=== PATIENT | male | born 1935 | race Caucasian/White ===

== ENCOUNTER 2021-07-06 09:35 | Inpatient (IN) | payer MEDICARE, BC ==
[~2021-07-06] VITALS: Ht 177.8 cm; Wt 74.8 kg
[~2021-07-06 09:35] MED LIST: ACET325T9 PO; CHOL200044 PO; DOCU-109 PO; FLUT16SP NS; FOLI1TAB16 PO; FURO80TA3 PO; GABA300C18 PO; GABA600T14 PO; OMEG300C PO; POTA99TA PO; QUIN10TA15 PO; SENN1TAB70 PO; VIT1CAPS12 PO
--- NOTE | 2021-07-06 10:14 | EKG ---
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
[2021-07-06 10:24] LABS: BASO # 0.1 x10^3/uL (0.0-0.2); BASO % 1 % (0-3); EOS # 0.1 x10^3/uL (0.0-0.7); EOS % 2 % (0-3); HEMATOCRIT 39.8 % (39.0-53.0); HEMOGLOBIN 13.4 g/dL (13.0-17.5); LYMPH # 0.6 x10^3/uL (1.0-4.8); LYMPH % 11 % (24-48); MEAN CORPUSCULAR HEMOGLOBIN 30 pg (25-35); MEAN CORPUSCULAR HGB CONC 34 g/dL (31-37); MEAN CORPUSCULAR VOLUME 88 fL (79-100); MONO # 0.6 x10^3/uL (0.0-1.1); MONO % 11 % (0-9); NEUT # 4.2 x10^3/uL (1.8-7.7); NEUT % 75 % (31-73); PLATELET COUNT 314 x10^3/uL (140-400); RED BLOOD COUNT 4.54 x10^6/uL (4.30-5.70); RED CELL DISTRIBUTION WIDTH 14.1 % (11.5-14.5); WHITE BLOOD COUNT 5.7 x10^3/uL (4.0-11.0)
--- NOTE | 2021-07-06 10:41 | RAD ---
CT HEAD/BRAIN WO Date: 07/06/2021 10:14 AM Clinical Indication: AMS Comparison: None. Technique: 5 mm axial tomographic images were obtained of the head without contrast. These were view ed on brain and bone windows. One or more of the following dose reduction techniques were utilized: A utomated exposure control (AEC), Adjustment of mA and/or kV according to patient size, Use of iterati ve reconstruction technique such as ASiR, CT scan done according to ALARA and image gently/image redding ly Findings: Mild generalized cerebral and cerebellar volume loss. Mild nonspecific periventricular hypoattenuatio n, most commonly seen with chronic small vessel ischemic disease. Calcified atherosclerosis of the bi lateral cavernous and paraclinoid internal carotid arteries. No intra- or extra-axial mass or fluid collection. No acute hemorrhage. Dilation of the lateral and t hird ventricles, out of proportion to the degree of cerebral volume loss. The barrientos-white matter junct ion is normal. The subarachnoid cisterns are patent. The visualized paranasal sinuses are normal. The visualized portions of the orbits and globes are no rmal. The mastoid air cells are clear. The sign out clerk topogram shows no lytic lesion or fracture. Impression: 1. No acute hemorrhage or loss of barrientos-white differentiation. 2. Dilation of the lateral and third ventricles, out of proportion to the degree of cerebral volume l oss. While this could relate to advanced central atrophy, normal pressure hydrocephalus could have a similar appearance and clinical correlation is advised. 3. Mild cerebral volume loss. Mild chronic small vessel ischemic disease. Electronically signed by: Rolly Gregorio MD (07/06/2021 10:39 AM) [id number]
--- NOTE | 2021-07-06 10:45 | RAD ---
EXAM: XR CHEST 1V 07/06/2021 10:34 AM CLINICAL INDICATION: Altered mental status COMPARISON: Chest radiograph 06/27/2021 TECHNIQUE: AP views of the chest FINDINGS: The heart is normal in size. There is marked elevation of the right hemidiaphragm with gas -filled colon beneath the diaphragm. The lungs are clear. No pleural effusion. There is a possible pl eural edge seen at the right apex versus more likely artifact. IMPRESSION: 1. Possible pleural edge versus more likely artifact at the right apex. A tiny right apical pneumotho rax is not entirely excluded. Recommend attention on follow-up. 2. Unchanged elevation of the right hemidiaphragm. Electronically signed by: Qing Gonzales MD (07/06/2021 10:43 AM) [id number]
[2021-07-06 11:15] LABS: CALCIUM 9.2 mg/dL (8.5-10.1); CREATININE 0.8 mg/dL (0.7-1.3); GFR 91.7; POTASSIUM 4.1 mmol/L (3.5-5.1)
[2021-07-06 11:17] LABS: CLARITY,URINE TURBID; COLOR,URINE BROWN; PH,URINE 5.5
[2021-07-06 11:18] LABS: RBC,URINE TNTC /HPF (0-2)
[2021-07-06 11:20] LABS: ALBUMIN 3.1 g/dL (3.4-5.0); ALBUMIN/GLOBULIN RATIO 0.8 (1.0-1.7); TOTAL BILIRUBIN 0.4 mg/dL (0.2-1.0); TOTAL PROTEIN 6.9 g/dL (6.4-8.2); WBC,URINE FIELD OBSCURED /HPF (0-4)
[2021-07-06 11:21] LABS: BACTERIA,URINE FIELD OBSCURED /HPF (0-FEW)
[2021-07-06 14:32] LABS: BILIRUBIN,URINE NEGATIVE (NEG); CLARITY,URINE CLOUDY; COLOR,URINE YELLOW; NITRITE,URINE NEGATIVE (NEG); PROTEIN,URINE 30 mg/dL (NEG-TRACE)
[2021-07-06 14:35] LABS: BACTERIA,URINE 0 /HPF (0-FEW)
[2021-07-06 14:37] LABS: RBC,URINE >40 /HPF (0-2)
[2021-07-06] MEDS ORDERED: IV NORMAL SALINE 1000ML BAG 1,000 ML IV ONE (15:15)
[2021-07-06] MEDS ORDERED: cefTRIAXone IV Push 1 GM VIAL. IVP ONE (15:15)
[2021-07-06] MEDS ORDERED: CYCLOPENTOLATE 1% OPHTH SOLUTION 2ML BOTTLE. OU ONE (15:45)
[2021-07-06] MEDS ORDERED: ACETAMINOPHEN 325 MG TABLET. PO PRN (16:30)
--- NOTE | 2021-07-06 17:38 | PHYS DOC ---
Past Medical History Additional Past Medical Histor: colon Past Surgical History: Colectomy Smoking Status: Former Smoker Alcohol Use: Rarely General Adult EDM: Chief Complaint: ALTERED MENTAL STATUS HPI: HPI: 86-year-old male presents with confusion. States that he was walking around his home and ended up in rooms and he did not know how he got there. Per family members this is the fourth time in the past several weeks he is called an ambulance because of this confusion. Lives alone by himself and is normally al ert and oriented perfectly. Patient states that he currently does not feel confused however he claims to have difficulty remembering things. Per family numbers he has had this chronic indwelling Rm for quite some time and was recently diagnosed with a urinary tract infection. They are unsure if he remembered to take his antibiotics. No fever or chills. No vomiting or diarrhea. Patient denies any abdominal pain back pain or flank pain. Denies knowing about any significant hematuria. Review of Systems: Review of Systems: Constitutional: Positive for confusion Eyes: Denies change in visual acuity. [] HENT: Denies nasal congestion or sore throat. [] Respiratory: Denies cough or shortness of breath. [] Cardiovascular: Denies chest pain or edema. [] GI: Denies abdominal pain, nausea, vomiting, bloody stools or diarrhea. [] : Denies dysuria. [] Musculoskeletal: Denies back pain or joint pain. [] Integument: Denies rash. [] Neurologic: Denies headache, focal weakness or sensory changes. [] Endocrine: Denies polyuria or polydipsia. [] Lymphatic: Denies swollen glands. [] Psychiatric: Denies depression or anxiety. [] Heart Score: C/O Chest Pain: No Risk Factors: Risk Factors: DM, Current or recent (<one month) smoker, HTN, HLP, family history of CAD, obesity. Risk Scores: Score 0 - 3: 2.5% MACE over next 6 weeks - Discharge Home Score 4 - 6: 20.3% MACE over next 6 weeks - Admit for Clinical Observation Score 7 - 10: 72.7% MACE over next 6 weeks - Early Invasive Strategies Current Medications: Current Medications Medications (Trade) Dose Ordered Sig/Jyotsna Start Time Stop Time Status Last Admin Dose Admin Acetaminophen (Tylenol) 650 mg PRN Q6HRS PRN 07/06/21 16:30 Ceftriaxone Sodium (Rocephin) 1 gm Q24H 07/07/21 15:00 Cyclopentolate HCl (Cyclogyl 1%) 1 drop 1X ONCE 07/06/21 15:45 07/06/21 15:46 DC 07/06/21 17:25 1 DROP Docusate Sodium (Colace) 100 mg BID 07/06/21 21:00 Fish Oil (Fish Oil) 1,000 mg DAILY 07/07/21 09:00 Folic Acid (Folic Acid) 1 mg DAILY 07/07/21 09:00 Furosemide (Lasix) 80 mg DAILY 07/07/21 09:00 Gabapentin (Neurontin) 300 mg TID 07/06/21 21:00 Multivitamins/ Minerals (I-Madeleine) 1 tab DAILY 07/07/21 09:00 Non-Formulary Medication (Potassium Gluconate (Potassium)) 99 mg DAILY 07/07/21 09:00 UNV Senna/Docusate Sodium (Senna Plus) 1 tab DAILY 07/07/21 09:00 Sodium Chloride 1,000 ml @ 150 mls/hr 1X ONCE 07/06/21 15:15 07/06/21 21:54 07/06/21 17:25 150 MLS/HR Vitamin D (Vitamin D3) 1,000 unit DAILY 07/07/21 09:00 Allergies: Allergies: Allergies Coded Allergies Type Severity Reaction Last Updated Verified codeine Adverse Reaction Intermediate Anxiety 07/06/21 Yes Physical Exam: PE: Constitutional: Well developed, well nourished, no acute distress, non-toxic appearance. [] HENT: Normocephalic, atraumatic, bilateral external ears normal, oropharynx moist, no oral exudates, nose normal. [] Eyes: PERRLA, EOMI, conjunctiva normal, no discharge. [] Neck: Normal range of motion, no tenderness, supple, no stridor. [] Cardiovascular:Heart rate regular rhythm, no murmur [] Lungs & Thorax: Bilateral breath sounds clear to auscultation [] Abdomen: Bowel sounds normal, soft, no tenderness, no masses, no pulsatile masses. Colostomy bag in place, Rm catheter in place with bag revealing dark-colored urine that is maroon Skin: Warm, dry, no erythema, no rash. [] Back: No tenderness, no CVA tenderness. [] Extremities: No tenderness, no cyanosis, no clubbing, ROM intact, no edema. [] Neurologic: Alert and oriented X 3, normal motor function, normal sensory function, no focal deficits noted. [] Psychologic: Affect normal, judgement normal, mood normal. [] Current Patient Data: Labs: Laboratory Tests Test 07/06/21 09:40 07/06/21 10:50 07/06/21 11:30 White Blood Count 5.7 x10^3/uL (4.0-11.0) Red Blood Count 4.54 x10^6/uL (4.30-5.70) Hemoglobin 13.4 g/dL (13.0-17.5) Hematocrit 39.8 % (39.0-53.0) Mean Corpuscular Volume 88 fL (79-100) Mean Corpuscular Hemoglobin 30 pg (25-35) Mean Corpuscular Hemoglobin Concent 34 g/dL (31-37) Red Cell Distribution Width 14.1 % (11.5-14.5) Platelet Count 314 x10^3/uL (140-400) Neutrophils (%) (Auto) 75 % (31-73) H Lymphocytes (%) (Auto) 11 % (24-48) L Monocytes (%) (Auto) 11 % (0-9) H Eosinophils (%) (Auto) 2 % (0-3) Basophils (%) (Auto) 1 % (0-3) Neutrophils # (Auto) 4.2 x10^3/uL (1.8-7.7) Lymphocytes # (Auto) 0.6 x10^3/uL (1.0-4.8) L Monocytes # (Auto) 0.6 x10^3/uL (0.0-1.1) Eosinophils # (Auto) 0.1 x10^3/uL (0.0-0.7) Basophils # (Auto) 0.1 x10^3/uL (0.0-0.2) Erythrocyte Sedimentation Rate 51 (0-15) H Urine Collection Type U cath U cath Urine Color Brown Yellow Urine Clarity Turbid Cloudy Urine pH 5.5 7.0 Urine Specific [place] 1.025 1.020 Urine Protein mg/dL (NEG-TRACE) 30 mg/dL (NEG-TRACE) Urine Glucose (UA) mg/dL (NEG) Negative mg/dL (NEG) Urine Ketones (Stick) mg/dL (NEG) 40 mg/dL (NEG) Urine Blood (NEG) Large (NEG) Urine Nitrite (NEG) Negative (NEG) Urine Bilirubin (NEG) Negative (NEG) Urine Urobilinogen Dipstick mg/dL (0.2 mg/dL) 1.0 mg/dL (0.2 mg/dL) Urine Leukocyte Esterase (NEG) Moderate (NEG) Urine RBC Tntc /HPF (0-2) >40 /HPF (0-2) Urine WBC Field obscured /HPF (0-4) 5-10 /HPF (0-4) Urine Bacteria Field obscured /HPF (0-FEW) 0 /HPF (0-FEW) Sodium Level 148 mmol/L (136-145) H Potassium Level 4.1 mmol/L (3.5-5.1) Chloride Level 111 mmol/L (98-107) H Carbon Dioxide Level 27 mmol/L (21-32) Anion Gap 10 (6-14) Blood Urea Nitrogen 18 mg/dL (8-26) Creatinine 0.8 mg/dL (0.7-1.3) Estimated GFR (Cockcroft-Gault) 91.7 BUN/Creatinine Ratio 23 (6-20) H Glucose Level 96 mg/dL (70-99) Calcium Level 9.2 mg/dL (8.5-10.1) Total Bilirubin 0.4 mg/dL (0.2-1.0) Aspartate Amino Transferase (AST) 42 U/L (15-37) H Alanine Aminotransferase (ALT) 74 U/L (16-63) H Alkaline Phosphatase 70 U/L (46-116) Total Protein 6.9 g/dL (6.4-8.2) Albumin 3.1 g/dL (3.4-5.0) L Albumin/Globulin Ratio 0.8 (1.0-1.7) L Lipase 183 U/L (73-393) Vitamin B12 Level 1347 pg/mL (247-911) H Thyroid Stimulating Hormone (TSH) 1.743 uIU/mL (0.358-3.74) Laboratory Tests 07/06/21 09:40 Laboratory Tests 07/06/21 10:50 Vital Signs: Vital Signs Date Time Temp Pulse Resp B/P (MAP) Pulse Ox O2 Delivery O2 Flow Rate FiO2 07/06/21 15:24 74 20 168/74 (105) 96 Room Air 07/06/21 10:06 98.4 98.4 EKG: EKG: [] Radiology/Procedures: Radiology/Procedures: [] Course & Med Decision Making: Course & Med Decision Making Pertinent Labs and Imaging studies reviewed. (See chart for details) Patient will be admitted with IV antibiotics and fluids. It is possible that he is confused because of possible confusion at home. There this has caused him to be noncompliant with his antibiotics. Additionally the CT scan was read by the radiologist as having large ventricles. I spoke with neurology on-call who states that this appeared to them to be correlated with age-related atrophy. I performed a dilated eye exam which did not show any papilledema. The optic discs were sharp in both eyes. Dragon Disclaimer: Dragon Disclaimer: This electronic medical record was generated, in whole or in part, using a voice recognition dictation system. Departure Departure Impression: Primary Impression: Urinary tract infection Additional Impression: Altered mental status Disposition: ADMITTED INPATIENT Condition: STABLE Referrals: JESSIE ROBERTSON MD (PCP) CHARLA FELICIANO MD July 06, 2021 17:38
--- NOTE | 2021-07-06 18:37 | HP ---
DATE OF SERVICE: 07/06/2021 ADMIT DATE: 07/06/2021 CHIEF COMPLAINT: Weakness and mental status change. HISTORY OF PRESENT ILLNESS: The patient is a pleasant elderly male who has been developing weakness and mental status change intermittently. He stated when he went upstairs today, he did not remember why went up there. While in the ER, we noticed that he has got abnormal urine with a moderate amount of leukocyte esterase and 10 white cells. I suspect he has a UTI. We are going to admit the patient, give him IV fluids and IV antibiotics. PAST MEDICAL HISTORY: Neuropathy, hypokalemia, hypertension, edema, allergic rhinitis, constipation. ALLERGIES: CODEINE. FAMILY HISTORY: Diabetes. SOCIAL HISTORY: Lives alone. Does not drink, smoke or take drugs. He has been for the past 6 years. MEDICATIONS: Reviewed. He is on 12. Please refer to the MRAD. REVIEW OF SYSTEMS: GENERAL: No history of weight change, weakness or fevers. SKIN: No bruising, hair changes or rashes. EYES: No blurred, double or loss of vision. NOSE AND THROAT: No history of nosebleeds, hoarseness or sore throat. HEART: No history of palpitations, chest pain or shortness of breath on exertion. LUNGS: Denies cough, hemoptysis, wheezing or shortness of breath. GASTROINTESTINAL: Denies changes in appetite, nausea, vomiting, diarrhea or constipation. GENITOURINARY: No history of frequency, urgency, hesitancy or nocturia. NEUROLOGIC: He complains of weakness and intermittent confusion. PSYCHIATRIC: No history of panic, anxiety or depression. ENDOCRINE: No history of heat or cold intolerance, polyuria or polydipsia. EXTREMITIES: Denies muscle weakness, joint pain, pain on walking or stiffness. PHYSICAL EXAMINATION: VITALS: Within normal limits and are stable. GENERAL: No apparent distress. Alert and oriented. HEENT: Normal cephalic atraumatic, external auditory canals are patent EYES: Extraocular muscles are intact, pupils are equally round and reactive to light and accommodation MUSCULOSKELETAL: Well developed, well nourished, good range of motion ENDOCRINE: No thyromegaly was palpated LYMPHATICS: No cervical chain or axillary nodes were noted HEMATOPOIETIC: No bruising NECK: Supple, no JVD, no thyromegaly was noted. LUNGS: Clear to auscultation in all lung pickard without rhonchi or wheezing. HEART: RRR, S1, S2 present. Peripheral pulses intact, no obvious murmurs were noted. ABDOMEN: Soft, nontender. Positive bowel sounds no organomegaly, normal bowel sounds. EXTREMITIES: Without any cyanosis, clubbing, or edema. Pedal pulses intact, Homans sign is negative. NEUROLOGIC: He is very weak. PSYCHIATRIC: Normal affect, normal mood. Stable. SKIN: No ulcerations or rashes, good skin turgor, no jaundice. VASCULAR: Good capillary refill, neurovascular bundle appears to be intact. LABORATORY DATA: Sodium is 148. Urinalysis shows a moderate amount of leukocyte esterase and 10 white cells. ASSESSMENT AND PLAN: Urinary tract infection with metabolic encephalopathy. The patient has been admitted. We will start IV antibiotics, IV fluids, home meds. Deep venous thrombosis prophylaxis. Full code. Physical therapy, occupational therapy, senior living unit evaluation. ANNI/YAZMIN DR: Rosemary TID: [id number]
[2021-07-06 19:00] VITALS: BP 141/58
[2021-07-06] MEDS: GABAPENTIN 300 MG CAPSULE. PO SCH (21:37)
[2021-07-06] MEDS: DOCUSATE SODIUM 100 MG CAPSULE. PO SCH (21:41)
[2021-07-07 03:00] VITALS: BP 130/59
[2021-07-07] MEDS ORDERED: FURO40TA4 PO (06:30)
[2021-07-07] MEDS ORDERED: OXYB10TA26 PO (06:30)
[2021-07-07] MEDS ORDERED: GABA300C9 PO (06:30)
[2021-07-07] MEDS ORDERED: FINA5TAB4 PO (06:30)
[2021-07-07] MEDS ORDERED: TAMS0.4C97 PO (06:30)
[2021-07-07 07:00] VITALS: BP 144/61
[2021-07-07] MEDS ORDERED: POTASSIUM GLUCONATE 99 MG PO SCH (09:00)
[2021-07-07] MEDS: SENNOSIDES/DOCUSATE 8.6/50MG TABLET. PO SCH (09:17)
[2021-07-07] MEDS: OMEGA-3 FATTY ACIDS/FISH OIL 1,000 MG CAPSULE. PO SCH (09:17)
[2021-07-07] MEDS: MULTIVITAMIN I-VITE TABLET. PO SCH (09:17)
[2021-07-07] MEDS: CHOLECALCIFEROL (VITAMIN D3) 1,000 UNIT TABLET PO SCH (09:17)
[2021-07-07] MEDS: DOCUSATE SODIUM 100 MG CAPSULE. PO SCH ×2 (09:18→20:44)
[2021-07-07] MEDS: FOLIC ACID 1 MG TABLET. PO SCH (09:18)
[2021-07-07] MEDS: GABAPENTIN 300 MG CAPSULE. PO SCH ×3 (09:18→20:44)
[2021-07-07] MEDS: FUROSEMIDE 80 MG TABLET. PO SCH (09:20)
[2021-07-07 11:00] VITALS: BP 109/55
[2021-07-07] MEDS: cefTRIAXone IV Push 1 GM VIAL. IVP SCH (14:27)
[2021-07-07 15:00] VITALS: BP 111/54
--- NOTE | 2021-07-07 16:17 | NUR ---
SS following for discharge planning. SS reviewed pt chart and discussed with pt RN. Pt is from home alone and is currently on room air. Pt on IV Rocephin and IV fluids. PT/OT ordered. SS will continue to follow for discharge planning.
[2021-07-07 19:00] VITALS: BP 139/57
[2021-07-07] MEDS: LACTOBACILLUS RHAMNOSUS GG 1 CAPSULE. PO SCH (20:44)
[2021-07-07 22:44] VITALS: BP 110/50
[2021-07-08 03:37] VITALS: BP 134/61
[2021-07-08 07:00] VITALS: BP 109/89
[2021-07-08] MEDS: OMEGA-3 FATTY ACIDS/FISH OIL 1,000 MG CAPSULE. PO SCH (08:43)
[2021-07-08] MEDS: CHOLECALCIFEROL (VITAMIN D3) 1,000 UNIT TABLET PO SCH (08:43)
[2021-07-08] MEDS: SENNOSIDES/DOCUSATE 8.6/50MG TABLET. PO SCH (08:43)
[2021-07-08] MEDS: MULTIVITAMIN I-VITE TABLET. PO SCH (08:43)
[2021-07-08] MEDS: LACTOBACILLUS RHAMNOSUS GG 1 CAPSULE. PO SCH ×2 (08:44→20:27)
[2021-07-08] MEDS: GABAPENTIN 300 MG CAPSULE. PO SCH ×3 (08:44→20:27)
[2021-07-08] MEDS: DOCUSATE SODIUM 100 MG CAPSULE. PO SCH ×2 (08:44→20:27)
[2021-07-08] MEDS: FOLIC ACID 1 MG TABLET. PO SCH (08:44)
[2021-07-08] MEDS: FUROSEMIDE 80 MG TABLET. PO SCH (08:44)
[2021-07-08 11:00] VITALS: BP 101/65
[2021-07-08] MEDS: cefTRIAXone IV Push 1 GM VIAL. IVP SCH (14:36)
[2021-07-08 15:00] VITALS: BP 128/80
--- NOTE | 2021-07-08 17:14 | PDOC ---
[employer] PROGRESS NOTE Date of Service DOS: DATE: 07/08/21 TIME: 17:11 Chief Complaint Chief Complaint Urinary tract infection with metabolic encephalopathy. The patient has been admitted. We will start IV antibiotics, IV fluids, home meds. Follow up urine cultures from OSH --> grew Proteus but pretty pansensitive other than Macrobid. Continue current Rocephin. Deep venous thrombosis prophylaxis. Full code. Physical therapy, occupational therapy, detention unit evaluation. --> recommending detention placement History of Present Illness History of Present Illness 07/08 Patient evaluated examined at bedside. Resting in bed still a bit confused. No growth on urine cultures but patient had received antibiotics prior to urine being obtained and chronic Rm can definitely cloud the picture. Exchange Rm. Outside cultures reviewed Proteus sensitive to Rocephin we will continue this for now. PT OT recommending SNF placement. Discussed with bedside RN. Continue current. Vitals/I&O Vitals/I&O: Vital Signs Date Time Temp Pulse Resp B/P (MAP) Pulse Ox O2 Delivery O2 Flow Rate FiO2 07/08/21 15:00 97.9 90 20 128/80 (96) 94 Room Air 97.9 I & O 07/07/21 07/07/21 07/08/21 15:00 23:00 07:00 Intake Total 240 ml 240 ml 240 ml Output Total 400 ml 1050 ml Balance -160 ml -810 ml 240 ml Physical Exam General: Alert, Oriented X3, Cooperative Heart: Regular rate, Normal S1, Normal S2 Lungs: Clear Abdomen: Normal bowel sounds, Soft, No hepatosplenomegaly Extremities: No edema, Normal pulses Skin: No significant lesion Assessment and Plan Assessmemt and Plan Problems Medical Problems: (1) Altered mental status Status: Acute (2) Urinary tract infection Status: Acute Comment Review of Relevant I have reviewed the following items lisa (where applicable) has been applied. Medications: Current Medications Medications (Trade) Dose Ordered Sig/Jyotsna Route PRN Reason Start Time Stop Time Status Last Admin Dose Admin Lactobacillus Rhamnosus (Culturelle) 1 cap BID PO 07/07/21 21:00 07/08/21 08:44 Justifications for Admission Other Justification ALLIE NAGEL MD July 08, 2021 17:14
[2021-07-08 19:43] VITALS: BP 110/52
[2021-07-08] MEDS: OXYBUTYNIN CHLORIDE 5 MG TABLET PO SCH (20:27)
[2021-07-08] MEDS ORDERED: GABAPENTIN 300 MG CAPSULE. PO SCH (21:00)
[2021-07-08 23:09] VITALS: BP 110/53
[2021-07-09 03:13] VITALS: BP 119/60
[2021-07-09 05:23] LABS: BASO # 0.1 x10^3/uL (0.0-0.2); BASO % 1 % (0-3); EOS # 0.4 x10^3/uL (0.0-0.7); EOS % 6 % (0-3); HEMATOCRIT 40.1 % (39.0-53.0); HEMOGLOBIN 13.5 g/dL (13.0-17.5); LYMPH # 1.2 x10^3/uL (1.0-4.8); LYMPH % 16 % (24-48); MEAN CORPUSCULAR HEMOGLOBIN 29 pg (25-35); MEAN CORPUSCULAR HGB CONC 34 g/dL (31-37); MEAN CORPUSCULAR VOLUME 87 fL (79-100); MONO % 13 % (0-9); NEUT # 4.8 x10^3/uL (1.8-7.7); NEUT % 64 % (31-73); PLATELET COUNT 262 x10^3/uL (140-400); RED BLOOD COUNT 4.61 x10^6/uL (4.30-5.70); RED CELL DISTRIBUTION WIDTH 14.1 % (11.5-14.5); WHITE BLOOD COUNT 7.5 x10^3/uL (4.0-11.0)
[2021-07-09 05:47] LABS: ALBUMIN 2.8 g/dL (3.4-5.0); ALBUMIN/GLOBULIN RATIO 0.8 (1.0-1.7); CALCIUM 8.7 mg/dL (8.5-10.1); CREATININE 0.8 mg/dL (0.7-1.3); GFR 91.7; POTASSIUM 3.2 mmol/L (3.5-5.1); TOTAL BILIRUBIN 0.4 mg/dL (0.2-1.0); TOTAL PROTEIN 6.2 g/dL (6.4-8.2)
[2021-07-09 07:00] VITALS: BP 128/60
[2021-07-09] MEDS: CHOLECALCIFEROL (VITAMIN D3) 1,000 UNIT TABLET PO SCH (08:35)
[2021-07-09] MEDS: DOCUSATE SODIUM 100 MG CAPSULE. PO SCH ×2 (08:36→20:42)
[2021-07-09] MEDS: OMEGA-3 FATTY ACIDS/FISH OIL 1,000 MG CAPSULE. PO SCH (08:36)
[2021-07-09] MEDS: FINASTERIDE 5 MG TABLET. PO SCH (08:36)
[2021-07-09] MEDS: SENNOSIDES/DOCUSATE 8.6/50MG TABLET. PO SCH (08:36)
[2021-07-09] MEDS: MULTIVITAMIN I-VITE TABLET. PO SCH (08:36)
[2021-07-09] MEDS: GABAPENTIN 300 MG CAPSULE. PO SCH ×3 (08:36→20:42)
[2021-07-09] MEDS: TAMSULOSIN 0.4 MG CAP.ER.24H. PO SCH (08:36)
[2021-07-09] MEDS: LACTOBACILLUS RHAMNOSUS GG 1 CAPSULE. PO SCH ×2 (08:36→20:42)
[2021-07-09] MEDS: FOLIC ACID 1 MG TABLET. PO SCH (08:36)
[2021-07-09] MEDS: FUROSEMIDE 80 MG TABLET. PO SCH (08:37)
[2021-07-09] MEDS: FLUTICASONE 50MCG/NASAL SPRAY 16GM BOTTLE. NS SCH (08:37)
[2021-07-09] MEDS: OXYBUTYNIN CHLORIDE 5 MG TABLET PO SCH ×2 (08:37→20:42)
[2021-07-09] MEDS ORDERED: POTASSIUM CHLORIDE 20 MEQ TABLET.ER. PO ONE (10:45)
--- NOTE | 2021-07-09 10:59 | PDOC ---
[employer] PROGRESS NOTE Date of Service DOS: DATE: 07/09/21 TIME: 10:57 Chief Complaint Chief Complaint Urinary tract infection with metabolic encephalopathy. The patient has been admitted. We will start IV antibiotics, IV fluids, home meds. Follow up urine cultures from OSH --> grew Proteus but pretty pansensitive other than Macrobid. Continue current Rocephin. Deep venous thrombosis prophylaxis. Full code. Physical therapy, occupational therapy, fdc unit evaluation. --> recommending fdc placement History of Present Illness History of Present Illness 07/09 Patient evaluated examined at bedside. Sitting up in chair resting. Easily awoken no complaints but does still look confused. Continue antibiotics. Replace potassium today. Will need SNF placement. 07/08 Patient evaluated examined at bedside. Resting in bed still a bit confused. No growth on urine cultures but patient had received antibiotics prior to urine being obtained and chronic Rm can definitely cloud the picture. Exchange Rm. Outside cultures reviewed Proteus sensitive to Rocephin we will continue this for now. PT OT recommending SNF placement. Discussed with bedside RN. Continue current. Vitals/I&O Vitals/I&O: Vital Signs Date Time Temp Pulse Resp B/P (MAP) Pulse Ox O2 Delivery O2 Flow Rate FiO2 07/09/21 07:00 98.1 71 20 128/60 (82) 95 Room Air 98.1 I & O 07/08/21 07/08/21 07/09/21 15:00 23:00 07:00 Intake Total 140 ml 100 ml Output Total 700 ml 600 ml 500 ml Balance -560 ml -600 ml -400 ml Physical Exam General: Alert, Cooperative, No acute distress Heart: Regular rate, Normal S1, Normal S2 Lungs: Clear Abdomen: Normal bowel sounds, Soft, No hepatosplenomegaly Extremities: No edema, Normal pulses Skin: No significant lesion Labs Labs: Laboratory Tests Test 07/09/21 04:45 White Blood Count 7.5 x10^3/uL (4.0-11.0) Red Blood Count 4.61 x10^6/uL (4.30-5.70) Hemoglobin 13.5 g/dL (13.0-17.5) Hematocrit 40.1 % (39.0-53.0) Mean Corpuscular Volume 87 fL (79-100) Mean Corpuscular Hemoglobin 29 pg (25-35) Mean Corpuscular Hemoglobin Concent 34 g/dL (31-37) Red Cell Distribution Width 14.1 % (11.5-14.5) Platelet Count 262 x10^3/uL (140-400) Neutrophils (%) (Auto) 64 % (31-73) Lymphocytes (%) (Auto) 16 % (24-48) Monocytes (%) (Auto) 13 % (0-9) Eosinophils (%) (Auto) 6 % (0-3) Basophils (%) (Auto) 1 % (0-3) Neutrophils # (Auto) 4.8 x10^3/uL (1.8-7.7) Lymphocytes # (Auto) 1.2 x10^3/uL (1.0-4.8) Monocytes # (Auto) 1.0 x10^3/uL (0.0-1.1) Eosinophils # (Auto) 0.4 x10^3/uL (0.0-0.7) Basophils # (Auto) 0.1 x10^3/uL (0.0-0.2) Sodium Level 138 mmol/L (136-145) Potassium Level 3.2 mmol/L (3.5-5.1) Chloride Level 104 mmol/L (98-107) Carbon Dioxide Level 25 mmol/L (21-32) Anion Gap 9 (6-14) Blood Urea Nitrogen 16 mg/dL (8-26) Creatinine 0.8 mg/dL (0.7-1.3) Estimated GFR (Cockcroft-Gault) 91.7 BUN/Creatinine Ratio 20 (6-20) Glucose Level 95 mg/dL (70-99) Calcium Level 8.7 mg/dL (8.5-10.1) Total Bilirubin 0.4 mg/dL (0.2-1.0) Aspartate Amino Transf (AST/SGOT) 19 U/L (15-37) Alanine Aminotransferase (ALT/SGPT) 35 U/L (16-63) Alkaline Phosphatase 54 U/L (46-116) Total Protein 6.2 g/dL (6.4-8.2) Albumin 2.8 g/dL (3.4-5.0) Albumin/Globulin Ratio 0.8 (1.0-1.7) Assessment and Plan Assessmemt and Plan Problems Medical Problems: (1) Altered mental status Status: Acute (2) Urinary tract infection Status: Acute Comment Review of Relevant I have reviewed the following items lisa (where applicable) has been applied. Medications: Current Medications Medications (Trade) Dose Ordered Sig/Jyotsna Route PRN Reason Start Time Stop Time Status Last Admin Dose Admin Finasteride (Proscar) 5 mg DAILY PO 07/09/21 09:00 07/09/21 08:36 Fluticasone Propionate (Flonase) 2 spray DAILY NS 07/09/21 09:00 07/09/21 08:37 Tamsulosin HCl (Flomax) 0.4 mg DAILY PO 07/09/21 09:00 07/09/21 08:36 Oxybutynin Chloride (Ditropan) 5 mg BID PO 07/08/21 21:00 07/09/21 08:37 Justifications for Admission Other Justification ALLIE NAGEL MD July 09, 2021 10:59
[2021-07-09 11:00] VITALS: BP 131/62
--- NOTE | 2021-07-09 12:30 | NUR ---
Family approached stating patient needed help. Assessed patient, was lethargic and fumbling with the lid to the meal tray, head down, eyes closed when this RN entered the room. Patient was cool and clammy. Vitals taken, patient was responsive, and answering questions appropriately, alertness improved in seconds. Within approximately 2mins, patient was warm and flushing. Blood sugar was checked and at 85, after patient had just finished his entire tray. Vitals were 97.8-oral, 72 HR 96%RA 91/45. Rm emptied. Patient was alert and appeared normal. Dr. He was informed. Orders received for ACHS, and hypoglycemia protocol initiated. Monitoring vitals and BS.
[2021-07-09] MEDS ORDERED: DEXTROSE 50% 25 GM / 50ML DISP.SYRIN. IV PRN (12:45)
[2021-07-09] MEDS: DICLOFENAC SODIUM 1% TOPICAL GEL 100GM TUBE. TP PRN ×2 (14:20→20:45)
[2021-07-09] MEDS: cefTRIAXone IV Push 1 GM VIAL. IVP SCH (14:21)
[2021-07-09 15:00] VITALS: BP 120/55
[2021-07-09 19:45] VITALS: BP 120/48
[2021-07-09 23:42] VITALS: BP 108/48
[2021-07-10 03:50] VITALS: BP 111/69
[2021-07-10 07:00] VITALS: BP 123/67
[2021-07-10] MEDS: FLUTICASONE 50MCG/NASAL SPRAY 16GM BOTTLE. NS SCH (08:07)
[2021-07-10] MEDS: LACTOBACILLUS RHAMNOSUS GG 1 CAPSULE. PO SCH ×2 (08:08→21:20)
[2021-07-10] MEDS: SENNOSIDES/DOCUSATE 8.6/50MG TABLET. PO SCH (08:08)
[2021-07-10] MEDS: CHOLECALCIFEROL (VITAMIN D3) 1,000 UNIT TABLET PO SCH (08:08)
[2021-07-10] MEDS: DOCUSATE SODIUM 100 MG CAPSULE. PO SCH ×2 (08:08→21:21)
[2021-07-10] MEDS: TAMSULOSIN 0.4 MG CAP.ER.24H. PO SCH (08:08)
[2021-07-10] MEDS: GABAPENTIN 300 MG CAPSULE. PO SCH ×3 (08:08→21:20)
[2021-07-10] MEDS: MULTIVITAMIN I-VITE TABLET. PO SCH (08:08)
[2021-07-10] MEDS: OMEGA-3 FATTY ACIDS/FISH OIL 1,000 MG CAPSULE. PO SCH (08:08)
[2021-07-10] MEDS: FOLIC ACID 1 MG TABLET. PO SCH (08:08)
[2021-07-10] MEDS: FUROSEMIDE 80 MG TABLET. PO SCH (08:08)
[2021-07-10] MEDS: FINASTERIDE 5 MG TABLET. PO SCH (08:08)
[2021-07-10] MEDS: OXYBUTYNIN CHLORIDE 5 MG TABLET PO SCH ×2 (08:09→21:21)
[2021-07-10 11:00] VITALS: BP 135/54
--- NOTE | 2021-07-10 12:57 | NUR ---
SS following up with discharge planning. SS reviewed pt chart and discussed with pt RN. Pt is from home alone and is currently on room air. Pt on IV Rocephin. PT/OT recommended correction unit. COVID19 test pending for placement. SS met with pt and discussed discharge planning and correction unit. Pt requesting to go to [facility], ; fax [phone]. Referral sent as requested. SS will continue to follow for discharge planning.
[2021-07-10] MEDS: cefTRIAXone IV Push 1 GM VIAL. IVP SCH (14:31)
--- NOTE | 2021-07-10 14:32 | PDOC ---
[employer] PROGRESS NOTE Date of Service DOS: DATE: 07/10/21 TIME: 14:31 Chief Complaint Chief Complaint Urinary tract infection with metabolic encephalopathy. The patient has been admitted. We will start IV antibiotics, IV fluids, home meds. Follow up urine cultures from OSH --> grew Proteus but pretty pansensitive other than Macrobid. Continue current Rocephin. Deep venous thrombosis prophylaxis. Full code. Physical therapy, occupational therapy, assisted unit evaluation. --> recommending assisted placement History of Present Illness History of Present Illness 07/10/2021 No acute events overnight. Patient seen examined on recliner. Tolerating his breakfast. Requesting to go to SNF. Patient states he also has a appointment set up for biopsy at . We will asked nurse to check up on this. Patient's chart, labs, images were reviewed and discussed with RN 07/09 Patient evaluated examined at bedside. Sitting up in chair resting. Easily awoken no complaints but does still look confused. Continue antibiotics. Replace potassium today. Will need SNF placement. 07/08 Patient evaluated examined at bedside. Resting in bed still a bit confused. No growth on urine cultures but patient had received antibiotics prior to urine being obtained and chronic Rm can definitely cloud the picture. Exchange Rm. Outside cultures reviewed Proteus sensitive to Rocephin we will continue this for now. PT OT recommending SNF placement. Discussed with bedside RN. Continue current. Vitals/I&O Vitals/I&O: Vital Signs Date Time Temp Pulse Resp B/P (MAP) Pulse Ox O2 Delivery O2 Flow Rate FiO2 07/10/21 11:00 97.5 65 18 135/54 (81) 96 Room Air 97.5 I & O 07/09/21 07/09/21 07/10/21 15:00 23:00 07:00 Intake Total 120 ml 240 ml 200 ml Output Total 1900 ml 550 ml 2250 ml Balance -1780 ml -310 ml -2050 ml Physical Exam General: Alert, Cooperative, No acute distress Heart: Regular rate, Normal S1, Normal S2 Lungs: Clear Abdomen: Normal bowel sounds, Soft, No hepatosplenomegaly Extremities: No edema, Normal pulses Skin: No significant lesion Labs Labs: Laboratory Tests Test 07/09/21 16:56 07/09/21 20:07 07/10/21 07:33 07/10/21 11:26 Glucose (Fingerstick) 133 mg/dL (70-99) 125 mg/dL (70-99) 78 mg/dL (70-99) 89 mg/dL (70-99) Assessment and Plan Assessmemt and Plan Problems Medical Problems: (1) Altered mental status Status: Acute (2) Urinary tract infection Status: Acute Comment Review of Relevant I have reviewed the following items lisa (where applicable) has been applied. Justifications for Admission Other Justification GEETA MARIE MD July 10, 2021 14:32
[2021-07-10 14:53] VITALS: BP 108/55
[2021-07-10 19:00] VITALS: BP 107/49
[2021-07-10 23:00] VITALS: BP 118/55
[2021-07-11 03:00] VITALS: BP 118/53
[2021-07-11 07:00] VITALS: BP 133/60
[2021-07-11] MEDS ORDERED: CEFD300C PO (08:43)
--- NOTE | 2021-07-11 08:46 | SNU/HH DC ---
DISCHARGE ORDERS DISCHARGE INFORMATION: DISCHARGE DATE: July 11, 2021 FINAL DIAGNOSIS Problems Medical Problems: (1) Altered mental status Status: Acute (2) Urinary tract infection Status: Acute CONDITION ON DISCHARGE: Stable CODE STATUS: Code Status: Full RETIREMENT: SNF STAY <30 DAYS: Yes POST DISCHARGE ORDERS: ACTIVITY ORDERS: Avoid exertion WEIGHT BEARING STATUS: No restrictions BATHING ORDERS: Shower-keep dressing dry WOUND/INCISION CARE: Ice to area for comfort FOLLOW-UP: PHYSICIAN FOLLOW-UP: PCP within 2 weeks of discharge LAB ORDERS FOR FOLLOW-UP: CBC, CMP in 1 week TREATMENT/EQUIPMENT ORDERS: ADAPTIVE EQUIPMENT NEEDED: None Physical Therapy For: Evalulation/Treatment Occupational Therapy For: Evaluation/Treatment DISCHARGE MEDICATIONS: Home Meds Active Scripts Cefdinir (CEFDINIR) 300 Mg Capsule, 1 CAP PO BID for uti for 3 Days, #6 CAP Prov:GEETA MARIE MD 07/11/21 Docusate Sodium (COLACE) 100 Mg Capsule, 100 MG PO BID, #60 CAP Prov:GAYE HUMPHREYS MD 09/07/14 Acetaminophen (TYLENOL) 325 Mg Tablet, 650 MG PO PRN Q6HRS PRN for PAIN / TEMP, #60 TAB Prov:GAYE HUMPHREYS MD 09/07/14 Reported Medications Gabapentin (Gabapentin) 300 Mg Capsule, 1 CAP PO TID for pn 07/07/21 Furosemide (FUROSEMIDE) 40 Mg Tablet, 1 TAB PO DAILY for edema 07/07/21 Tamsulosin Hcl (FLOMAX) 0.4 Mg Cap.er.24h, 0.4 MG PO DAILY for 07/07/21 Finasteride (FINASTERIDE) 5 Mg Tablet, 1 TAB PO DAILY for 07/07/21 Oxybutynin Chloride (OXYBUTYNIN CHLORIDE ER) 10 Mg Tab.er.24, 1 TAB PO DAILY for 07/07/21 Sennosides/Docusate Sodium (STOOL SOFTENER TABLET) 1 Each Tablet, 1 EACH PO DAILY for stool softner plus laxative LAST DOSE GIVEN: DATE: 08/08 TIME: 8:30 am NEXT DOSE DUE: DATE: 08/09 TIME: 8:30 am 08/25/14 Vit A/Vit C/Vit E/Zinc/Copper (PRESERVISION AREDS SOFTGEL) 1 Each Capsule, 2 EACH PO DAILY May resume at home as ordered by doctor. 08/25/14 Cholecalciferol (Vitamin D3) (D3-2000) 2,000 Unit Capsule, 1000 UNIT PO DAILY May resume at home as ordered by doctor. 08/25/14 Potassium Gluconate (POTASSIUM) 99 Mg Tablet, 99 MG PO DAILY, TAB May resume at home as ordered by doctor. 08/25/14 Alda-3 Fatty Acids (FISH OIL) 300 Mg Capsule, 600 MG PO DAILY May resume at home as ordered by doctor. 08/25/14 Folic Acid (FOLIC ACID) 1 Mg Tablet, 1 MG PO DAILY, TAB LAST DOSE GIVEN: DATE: 08/08 TIME: 8:30 am NEXT DOSE DUE: DATE: 08/09 TIME: 8:30 am 08/25/14 Fluticasone Propionate (FLUTICASONE PROPIONATE NASAL SPRAY) 16 Gm [place].susp, 2 SPRAY NS for allergies, #1 INHALER 5 Refills LAST DOSE GIVEN: DATE: 08/28 TIME: 5:00 am NEXT DOSE DUE: DATE: 08/09 if needed TIME: 5:00 am 01/06/14 Discontinued Reported Medications Quinapril Hcl (QUINAPRIL HCL) 10 Mg Tablet, 10 MG PO, TAB May resume at home as ordered by doctor. 01/06/14 GEETA MARIE MD July 11, 2021 08:46
[2021-07-11] MEDS: SENNOSIDES/DOCUSATE 8.6/50MG TABLET. PO SCH (09:00)
[2021-07-11] MEDS: TAMSULOSIN 0.4 MG CAP.ER.24H. PO SCH (09:40)
[2021-07-11] MEDS: DOCUSATE SODIUM 100 MG CAPSULE. PO SCH (09:40)
[2021-07-11] MEDS: CHOLECALCIFEROL (VITAMIN D3) 1,000 UNIT TABLET PO SCH (09:40)
[2021-07-11] MEDS: LACTOBACILLUS RHAMNOSUS GG 1 CAPSULE. PO SCH (09:40)
[2021-07-11] MEDS: FUROSEMIDE 80 MG TABLET. PO SCH (09:41)
[2021-07-11] MEDS: FINASTERIDE 5 MG TABLET. PO SCH (09:41)
[2021-07-11] MEDS: GABAPENTIN 300 MG CAPSULE. PO SCH (09:41)
[2021-07-11] MEDS: FLUTICASONE 50MCG/NASAL SPRAY 16GM BOTTLE. NS SCH (09:41)
[2021-07-11] MEDS: OXYBUTYNIN CHLORIDE 5 MG TABLET PO SCH (09:41)
[2021-07-11] MEDS: FOLIC ACID 1 MG TABLET. PO SCH (09:41)
[2021-07-11] MEDS: OMEGA-3 FATTY ACIDS/FISH OIL 1,000 MG CAPSULE. PO SCH (09:42)
[2021-07-11] MEDS: MULTIVITAMIN I-VITE TABLET. PO SCH (09:45)
[2021-07-11 10:42] VITALS: BP 115/50
--- NOTE | 2021-07-11 11:35 | NUR ---
SS following up with discharge planning. SS reviewed pt chart and discussed with pt RN. Pt is currently on room air. COVID19 negative. PT/OT recommended snf unit. Pt accepted at [facility], ; fax [phone]. Discharge orders received and sent to [facility]. Pt will discharge today and go to [facility] at 1315 via [facility] transport, [id number]. Pt and pt's RN notified.
== END 2021-07-11 13:30 | DRG 689 ==
LOC: ER 09:35 → ED HOLD 16:35 → 5 NORTH 18:32 → OBSVTOIN 07-07 08:41
PROVIDERS: ADMIT Internal Medicine; ATTEND Internal Medicine
DX: N39.0 Urinary tract infection, site not specified (principal); G93.41 Metabolic encephalopathy; B96.4 Proteus (mirabilis) (morganii) as the cause of diseases classified elsewhere; I10 Essential (primary) hypertension; Z83.3 Family history of diabetes mellitus; Z87.891 Personal history of nicotine dependence; G62.9 Polyneuropathy, unspecified; Z60.2 Problems related to living alone; Z88.8 Allergy status to other drugs, medicaments and biological substances
CPT/HCPCS: 36415; 70450; 71045; 80053; 81001; 82607; 82746; 82962; 83690; 84443; 85025; 85651; 87086; 93005; 96361; 96374; G0378; G0379; J0696; J7030; U0003; 97116-GP; 97530-GO; 97530-GP; 97535-GO; 99285-25